=== PATIENT | male | born 1975 | race Caucasian/White ===

== ENCOUNTER 2016-09-03 18:27 | Emergency (ER) | payer OTHER ==
[~2016-09-03 18:27] MED LIST: ATV5 PO; CHN5 PO; MULT-506 PO; POTA-335 PO; PRLSR20 PO
[2016-09-03 18:34] VITALS: BP 0/0; PULSE 0; O2SAT 0
--- NOTE | 2016-09-03 18:50 | EMERGENCY ROOM VISIT NOTE ---
History Report prepared by Raúl: Baljit Lange Under the Supervision of: Dr. Jama De Luna M.D. 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 Medical command given to EMS prior to patient arrival. Patient met on arrival intubated, ventilated with bag valve, on Dragan device. Per EMS staff, the patient has a history of alcoholism with alcohol withdraw seizures. The patient suffered from a seizure prior to EMS arrival on scene. Patient was found to be in cardiac arrest. 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 Patient was intubated, given 7 rounds of epinephrine , and 1.5mg/kg lidocaine by EMS staff. HPI limited d/t cardiac arrest. 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 Past Medical & Surgical Medical Problems: (1) Alcoholism (2) Seizure Family History Unknown family medical history Social History Alcohol Use: heavy Marital Status: single Housing Status: lives alone Current/Historical Medications Unable to Obtain Active Prescriptions or Reported Meds Allergies Coded Allergies: No Known Allergies (Verified Allergy, Mild, 11/17/07) Physical Exam Vital Signs Date Time Temp Pulse Resp B/P Pulse Ox O2 Delivery O2 Flow Rate FiO2 09/03/16 18:34 0 0 0/0 0 Physical Exam GENERAL: Patient in cardiac arrest. HEENT: Pupils fixed and dilated. No signs of obvious trauma. HEART: No heart tones noted, patient is being ventilated with bag valve. ABDOMEN: No signs of obvious trauma/ EXTREMITIES: No signs of trauma NEUROLOGIC: Flaccid, unresponsive to painful stimuli. Medical Decision & Procedures ED Course 1827: Past medical records reviewed. The patient was evaluated in room B1. A complete history and physical examination was performed. 1828: Dragan Device and bag valve ventilation paused. Patient remained in asystole. No heart sounds upon auscultation. Asystole greater than 30 minutes despite ACLS drugs. 1829: Time of 1829. 190: I spoke with the patient's family. Medical Decision Nurses notes reviewed. Medical history sheet reviewed. Differential diagnosis includes but is not limited to: Cardiopulmonary arrest, ventricular fibrillation , alcohol withdraw seizure, metabolic disorder. The patient was in asystole for least 30 minutes prior to arrival. Pupils are fixed and dilated and the patient was unresponsive to painful stimuli. He is apneic and pulseless. The patient had already received multiple doses of epinephrine and I believe the chance of survival is nil. Therefore CPR was discontinued. Family was notified by myself. Organ donation was considered but the patient is expected to have an autopsy. Impression Primary Impression: Cardiopulmonary arrest Additional Impression: Scribe Attestation The scribe's documentation has been prepared under my direction and personally reviewed by me in its entirety. I confirm that the note above accurately reflects all work, treatment, procedures, and medical decision making performed by me. Departure Information Dispostion Prescriptions Unable to Obtain Active Prescriptions or Reported Meds Referrals [facility] (PCP) Forms WORK / SCHOOL INSTRUCTIONS, HOME CARE DOCUMENTATION FORM, IMPORTANT VISIT INFORMATION Patient Instructions My [facility] Health Problem Qualifiers
== END 2016-09-03 18:51 | disposition expired ==
LOC: EDBD 18:27 → C.EDB 18:28 → C.EDA 18:51
DX: I46.9 Cardiac arrest, cause unspecified (principal); F10.20 Alcohol dependence, uncomplicated; R56.9 Unspecified convulsions